=== PATIENT | female | born 1960 | race Caucasian/White ===

== ENCOUNTER → 2017-05-31 | Outpatient (CLI) | payer OTHER ==
[~2017-05-31] MED LIST: FLEXERIL PO; IBUPROFEN 800800 MG PO; NAPROSYN500 MG PO; NOHOMEMEDICATIONS; NORCO 5-325 TA1 EACH PO
== END ==
LOC: M.CT 10:53
DX: Z13.6 Encounter for screening for cardiovascular disorders (principal)

== ENCOUNTER → 2017-12-12 | Outpatient (CLI) | payer OTHER | LOC: M.RAD 14:20 | DX: Z12.31 Encounter for screening mammogram for malignant neoplasm of breast (principal) ==

== ENCOUNTER 2018-05-19 20:19 | Emergency (ER) | payer OTHER ==
[~2018-05-19] VITALS: Ht 172.7 cm; Wt 63.5 kg
[2018-05-19] MEDS ORDERED: PROGESTERONE100 MG PO (20:28)
[2018-05-19] MEDS ORDERED: ESTRADIOL 1 MG T1 M1 PO (20:28)
[2018-05-19 20:52] LABS: ABSOLUTE EOSINOPHILS 0.1 thou/uL (0.0-0.7); ABSOLUTE LYMPHOCYTES 2.3 thou/uL (0.8-5.3); ABSOLUTE MONOCYTES 0.6 thou/uL (0.0-1.2); ABSOLUTE NEUTROPHILS 4.6 thou/uL (1.6-8.1); BASOPHILS 0.6 %; EOSINOPHILS 1.5 %; HEMATOCRIT 34.5 % (37.0-47.0); HEMOGLOBIN 12.1 gm/dL (12.0-15.0); LYMPHOCYTES 30.2 %; MCH 32.3 pg (26.0-34.0); MCHC 35.1 g/dL (28.0-37.0); MONOCYTES 7.7 %; MPV 8.6 fl. (7.2-11.1); NUCLEATED RBCS 0 /100WBC; PLATELET COUNT* 224 thou/uL (150-400); RBC 3.75 mil/uL (4.20-5.00); RDW-CV 12.1 % (10.5-14.5); WBC 7.7 thou/uL (4.0-11.0)
[2018-05-19 21:02] LABS: INR 1.1
[2018-05-19 21:14] LABS: ANION GAP 8 mmol/L (7-16); BUN 13 mg/dL (7-18); CALCIUM 9.2 mg/dL (8.5-10.1); CHLORIDE 105 mmol/L (98-107); CO2 26 mmol/L (21-32); CREATININE 0.9 mg/dL (0.6-1.3); GLUCOSE 133 mg/dL (70-99); SODIUM 139 mmol/L (136-145); TROPONIN-I LEVEL <0.06 ng/mL (<0.06)
[2018-05-19 21:15] LABS: ALBUMIN 3.6 g/dL (3.4-5.0); ALKALINE PHOSPHATASE 76 U/L (46-116); LIPASE 181 U/L (73-393); NT-PRO BRAIN NAT PEPTIDE 67 pg/mL (<300); POTASSIUM 5.3 mmol/L (3.5-5.1); SGPT 28 U/L (30-65); TOTAL BILIRUBIN 0.3 mg/dL (<0.1-1.0); TOTAL PROTEIN 7.6 g/dL (6.4-8.2)
[2018-05-19 21:26] LABS: SGOT 31 U/L (15-37)
[2018-05-19] MEDS ORDERED: FLEXERIL PO (23:22)
[2018-05-19 23:30] VITALS: BP 128/78
--- NOTE | 2018-05-20 13:10 | EKG ---
[place] [address] ELECTROCARDIOGRAM REPORT Name: STEVE LACY I Room: [facility]#: [id number] Admission: 05/19/18 Attend Phys: Discharge: 05/19/18 Date of : 62 Report #: [id number] THIS REPORT FOR: //name// [facility] ED Test Date: 2018-05-19 Test Time: 20:36:27 Pat Name: STEVE LACY Department: Room: Gender: F Ent Surgeon: ROSA : 1960 Requested By: Mariam Doshi Order Number: [id number] MD: Ramesh Oliveira Measurements Intervals [place] Rate: 75 P: 58 OR: 138 QRS: 67 QRSD: 76 T: 58 QT: 368 QTc: 411 Interpretive Statements Sinus rhythm RSR' in V1 or V2, probably normal variant Compared to ECG 10/21/2016 11:57:23 Atrial premature complex(es) no longer present Electronically Signed On 05-20-2018 13:10:12 CDT by Ramesh Oliveira [email or web address] <ELECTRONICALLY SIGNED> By: Ramesh Oliveira MD, [facility] 05/20/18 8910 35 35 Ramesh Oliveira MD, [facility] /EPI
== END 2018-05-19 23:30 | disposition home or self-care (01) ==
LOC: M.ERS 20:19
PROVIDERS: Emergency Medicine
DX: R07.89 Other chest pain (principal); Z88.0 Allergy status to penicillin

== ENCOUNTER → 2018-12-10 | Outpatient (CLI) | payer OTHER ==
[~2018-12-10] MED LIST changes: +ESTRADIOL 1 MG T1 M1 PO; +PROGESTERONE100 MG PO
== END ==
LOC: M.RAD 14:10
DX: Z12.31 Encounter for screening mammogram for malignant neoplasm of breast (principal)

== ENCOUNTER → 2018-12-16 | Outpatient (CLI) | payer OTHER | LOC: M.RAD 12-11 17:14 | DX: N63.20 Unspecified lump in the left breast, unspecified quadrant (principal) ==

== ENCOUNTER → 2019-04-18 | Outpatient (CLI) | payer OTHER | LOC: M.RAD 14:33 | DX: M51.36 Other intervertebral disc degeneration, lumbar region (principal); M48.061 Spinal stenosis, lumbar region without neurogenic claudication ==

== ENCOUNTER → 2019-06-03 | Outpatient (CLI) | payer OTHER ==
--- NOTE | 2019-06-03 17:17 | EXE ---
[place] [address] STRESS ECHOCARDIOGRAM Name: STEVE LACY I Room: [facility]#: [id number] Admission: 06/03/19 Attend Phys: Branden Meraz, Discharge: Date of : 62 Date of Service: 06/03/19 1716 Report #: [id number] THIS REPORT FOR: cc: Marci Foote Linda J. DO Liston, Michael J. MD [facility] ~ APPROVED REPORT Study performed: 06/03/2019 16:02:41 Exam: Stress Echocardiogram Indication: Dyspnea , Chest pain Patient Location: Out-Patient Stress Nurse: Jennifer Betts RN Supervising Physician: Branden Meraz MD Status: routine Ht: 5 ft 8 in HR: 92 bpm BP: 121/73 mmHg Rhythm: NSR Medical History Cardiac Risk Factors: Hyperlipidemia, HTN Procedure The patient underwent an Exercise Stress Test using the Anthony Protocol. Blood pressure, heart rate, and EKG were monitored. An Echocardiogram was performed by refrigerator repair technician in four stages in quad fashion. At peak stress, four selected images were obtained and placed side by side with resting images for comparison. Stress Test Details Stress Test: Exercise stress testing was performed using a Anthony protocol. HR Resting HR: 92 bpm Max Heart Rate (APMHR): 162 bpm Max HR Achieved: 190 bpm Target HR (85% APMHR): 137 bpm % of APMHR: 117 Recovery HR: 107 bpm HR response to stress: Normal HR response to stress BP Resting BP: 121/73 mmHg Max BP: 206/[address] [address] STRESS ECHOCARDIOGRAM Name: STEVE LACY I Room: [facility]#: [id number] Admission: 06/03/19 Attend Phys: Branden Meraz, Discharge: Date of : 62 Date of Service: 06/03/19 1716 Report #: [id number] Recovery BP: 109/75 mmHg BP response to stress: Normal blood pressure response to stress. ECG Resting ECG: Sinus Rhythm Stress ECG: Sinus Tachycardia ST Change: None Arrhythmia: None Recovery ECG: Sinus Rhythm Recovery ST Change: None Recovery Arrhythmia: None Clinical Reason for Termination: Completed protocol, Maximal effort Exercise duration: 12 min 37 sec Highest Stage Achieved: Stage 5: 5.0 mph at 18% grade. Exercise capacity: 13.87 METs Patient had no significant cardiac symptoms with standard Anthony protocol exercise. Stress ECG Conclusion The baseline 12-lead EKG showed sinus rhythm without significant ST segment or T wave abnormality. EKGs during and post exercise showed sinus rhythm and sinus tachycardia with no significant ST segment or T-wave changes when compared to baseline. There were no stress-induced arrhythmias. Pre-Stress Echo The resting Echocardiogram showed normal left ventricular contractility with an estimated Ejection Fraction of about 60-65%. The resting echocardiogram demonstrated normal wall motion in all wall segments. Post-Stress Echo The stress Echocardiogram showed normal left ventricular contractility with an estimated Ejection Fraction of about >70%. Compared to rest, there were no stress-induced wall motion abnormalities. Clinical No clinical or ECG evidence for ischemia. Conclusion Clinical Response: Non-ischemic Exercise Capacity: Superior Stress ECG Response: [place] [address] STRESS ECHOCARDIOGRAM Name: RUEL LACYHodan Gil [id number] Admission: 06/03/19 Attend Phys: Branden Meraz, Discharge: Date of : 62 Date of Service: 06/03/19 1716 Report #: [id number] Stress Echo Images: Non-ischemic There was no EKG, echo or clinical evidence of stress-induced ischemia. Left ventricular systolic function was normal at rest and augmented normally with exercise. The patient exhibited severe exercise tolerance. This is a low risk study. No prior study available for comparison. Other Information Study Quality: Good <Conclusion> There was no EKG, echo or clinical evidence of stress-induced ischemia. Left ventricular systolic function was normal at rest and augmented normally with exercise. The patient exhibited severe exercise tolerance. This is a low risk study. <ELECTRONICALLY SIGNED> By: Branden Meraz MD, FACC 06/03/19 1716 15 15 Branden Meraz MD, FAC /INF
== END ==
LOC: M.CRD 14:30
DX: R07.89 Other chest pain (principal); E78.5 Hyperlipidemia, unspecified; I10 Essential (primary) hypertension